=== PATIENT | male | born 1950 | race Caucasian/White ===

== ENCOUNTER 2016-11-21 14:25 | Emergency (ER) | payer OTHER ==
[2016-11-21] MEDS ORDERED: HYDROcodone/APAP 5-325MG 1 EACH TAB PO STA (16:55)
--- NOTE | 2016-11-21 17:02 | ED ---
ENT HPI <Aleksey Wells - Last Filed: 11/21/16 17:10> - General Source: patient, RN notes reviewed Mode of arrival: EMS Limitations: no limitations <Shana Agudelo - Last Filed: 11/21/16 17:12> - General Chief complaint: ENT Stated complaint: tooth ache Time Seen by Provider: 11/21/16 16:14 - History of Present Illness Initial comments: Patient is a 65-year-old male presents to the emergency room for evaluation of left upper dental pain. Patient states he's been having dental pain for many years. Patient states he began having left-sided facial swelling starting this morning. Patient states states the left side of his face was swollen and bright red. Patient states while sitting in the waiting room the swelling has gone down. Patient states he still continuing to have dental pain. Patient states he hasn't been to a dentist in many years. Patient denies fevers or chills. Patient states that he is not allowed to take any antibiotics due to history of blood clot. Patient states his physician told him to never take antibiotics again. Patient denies trouble swallowing. Patient denies ear pain. Patient denies neck pain. (Shana Agudelo) - Related Data Home Medications Medication Instructions Recorded Confirmed metFORMIN HCL 1,000 mg PO BID 11/21/16 11/21/16 Previous Rx's Medication Instructions Recorded HYDROcodone/APAP 5-325MG [[place] 1 tab PO Q6HR PRN #12 tab 11/21/16 5-325] Allergies Allergy/AdvReac Type Severity Reaction Status Date / Time acetaminophen Allergy Unknown Verified 11/21/16 17:10 [From Darvocet-N] propoxyphene Allergy Unknown Verified 11/21/16 17:10 [From Darvocet-N] antibiotics Allergy Swelling Uncoded 11/21/16 14:59 Review of Systems ROS Other: All systems not noted in ROS Statement are negative. <Aleksey Wells - Last Filed: 11/21/16 17:10> ROS Other: All systems not noted in ROS Statement are negative. <Shana Agudelo - Last Filed: 11/21/16 17:12> ROS Statement: Those systems with pertinent positive or pertinent negative responses have been documented in the HPI. Past Medical History Past Medical History: CVA/TIA Additional Past Medical History / Comment(s): "brain surgery from blood clot" History of Any Multi-Drug Resistant Organisms: None Reported Past Surgical History: Orthopedic Surgery Additional Past Surgical History / Comment(s): jaw surgery Past Psychological History: No Psychological Hx Reported Smoking Status: Current every day smoker Past Alcohol Use History: Daily Past Drug Use History: None Reported <Shana Agudelo - Last Filed: 11/21/16 17:12> General Exam Limitations: no limitations General appearance: alert, in no apparent distress Head exam: Present: atraumatic, normocephalic, normal inspection ENT exam: Present: other (Mild left-sided facial edema over left maxillary sinus ) Expanded Ear exam: Present: normal external inspection Teeth exam: Present: dental caries (Patient has very poor dentition), fractured tooth # (multiple), dental tenderness # (18-22) Throat exam: normal inspection Neck exam: Present: normal inspection Respiratory exam: Absent: respiratory distress Back exam: Present: normal inspection Neurological exam: Present: alert, oriented X3 Psychiatric exam: Present: normal affect, normal mood Skin exam: Present: warm, dry, intact, normal color. Absent: rash <Shana Agudelo - Last Filed: 11/21/16 17:12> - General Exam Comments Initial Comments: Sitting in exam room, no acute distress. (Shana Agudelo) Medical Decision Making <Aleksey Wells - Last Filed: 11/21/16 17:10> <Shana Agudelo - Last Filed: 11/21/16 17:12> - Medical Decision Making Medical decision making; I spoke with the patient who insists he cannot take any antibiotics. No antibiotics or be used according to a [facility] who [facility]. The patient has the need for antibiotics for dental abscess in the right maxilla. He reports it's less tender less swollen now than it was earlier this morning. Multiple dental caries and fractured teeth. We told him he can't and won't take antibiotics already can provide his analgesics. He was advised to [facility] the [facility], asked there are advised concerning antibiotic he can take. Also follow-up with the dentist for extraction of teeth. Significant increase risk in serious infections discussed with the patient. He began insists no antibiotics of any type. Dr. Wells ( Aleksey Wells) Disposition <Aleksey Wells - Last Filed: 11/21/16 17:10> Time of Disposition: 17:08 <Shana Agudelo - Last Filed: 11/21/16 17:12> Clinical Impression: Pain, dental, Dental abscess Disposition: HOME SELF-CARE Condition: Good Instructions: Dental Caries (ED), Toothache (ED) Additional Instructions: [facility] as possible to find out what [facility] you can take .Please also follow up with a dentist. If you do not have a dentist, you may contact [facility]. Phone number is [phone] for existing clients. For new clients you may call [phone]. Another option is you have is the [facility] dental school. Phone number is . Medications as directed. [place] gargles. Cold fluids can sometimes help with pain as well. Return to the Emergency Room for any worsening or changing symptoms. Use cold compresses to the outside of the face. Prescriptions: HYDROcodone/APAP 5-325MG [[place] 5-325] 1 tab PO Q6HR PRN #12 tab PRN Reason: Pain Referrals: Yandel Shaikh DO [Primary Care Provider] - 1-2 days
[2016-11-21 18:37] VITALS: BP 142/67; PULSE 76; RESP 20
[2016-11-21 19:29] VITALS: TEMP 98.1
== END 2016-11-21 19:03 | disposition home or self-care (01) ==
LOC: EC 14:25
DX: S02.5XXA Fracture of tooth (traumatic), initial encounter for closed fracture (principal); K02.9 Dental caries, unspecified; K04.7 Periapical abscess without sinus; F17.200 Nicotine dependence, unspecified, uncomplicated; Z79.84 Long term (current) use of oral hypoglycemic drugs; Z88.1 Allergy status to other antibiotic agents; Z88.5 Allergy status to narcotic agent; X58.XXXA Exposure to other specified factors, initial encounter
CPT/HCPCS: 99283

== ENCOUNTER 2018-01-20 03:18 | Emergency (ER) | payer OTHER | END 2018-01-20 04:17 | disposition home or self-care (01) | LOC: EC 03:18 | DX: M79.672 Pain in left foot (principal); R11.0 Nausea; F17.200 Nicotine dependence, unspecified, uncomplicated; Z86.73 Personal history of transient ischemic attack (TIA), and cerebral infarction without residual deficits | CPT/HCPCS: 96372; 99282 ==

== ENCOUNTER 2018-01-25 18:33 | Inpatient (IN) | payer OTHER, MEDICARE ==
[2018-01-25] MEDS ORDERED: SODIUM CHLORIDE 0.9% 2,000 ML IV ONE (18:57)
[2018-01-25] MEDS ORDERED: SODIUM CHLORIDE 0.9% 1,000 ML IV STA (18:57)
[2018-01-25] MEDS ORDERED: SODIUM CHLORIDE 0.9% 500 ML IV STA (18:57)
--- NOTE | 2018-01-25 18:57 | ED ---
Skin/Abscess/FB HPI - General Chief complaint: Skin/Abscess/Foreign Body Stated complaint: Wound Time Seen by Provider: 01/25/18 18:33 Source: patient, EMS, RN notes reviewed Mode of arrival: EMS Limitations: no limitations - History of Present Illness Initial comments: This is a 67-year-old male who is brought in by EMS as a left foot pain and infection. Patient states he was on antibiotics which made him feel sick he quit taking them. He presents now complains of pain he has a fever today no nausea vomiting sweats. He denies any antibiotic ALLERGIES he does he preferred not to take any. Complaints at this time - Related Data Home Medications Medication Instructions Recorded Confirmed metFORMIN HCL 1,000 mg PO BID 11/21/16 11/21/16 Previous Rx's Medication Instructions Recorded HYDROcodone/APAP 5-325MG [[place] 1 tab PO Q6HR PRN #12 tab 11/21/16 5-325] Allergies Allergy/AdvReac Type Severity Reaction Status Date / Time acetaminophen Allergy Unknown Verified 11/21/16 17:10 [From Darvocet-N] propoxyphene Allergy Unknown Verified 11/21/16 17:10 [From Darvocet-N] antibiotics Allergy Swelling Uncoded 11/21/16 14:59 Review of Systems ROS Statement: Those systems with pertinent positive or pertinent negative responses have been documented in the HPI. ROS Other: All systems not noted in ROS Statement are negative. Past Medical History Past Medical History: CVA/TIA Additional Past Medical History / Comment(s): "brain surgery from blood clot" History of Any Multi-Drug Resistant Organisms: None Reported Past Surgical History: Orthopedic Surgery Additional Past Surgical History / Comment(s): jaw surgery Past Psychological History: No Psychological Hx Reported Smoking Status: Current every day smoker Past Alcohol Use History: Daily Past Drug Use History: Marijuana General Exam - General Exam Comments Initial Comments: This a well-developed well-nourished awake alert oriented times 3 male Limitations: no limitations General appearance: alert, in no apparent distress Head exam: Present: atraumatic, normocephalic, normal inspection Eye exam: Present: normal appearance, PERRL, EOMI. Absent: scleral icterus, conjunctival injection, periorbital swelling ENT exam: Present: mucous membranes dry Neck exam: Present: normal inspection. Absent: tenderness, meningismus, lymphadenopathy Respiratory exam: Present: normal lung sounds bilaterally. Absent: respiratory distress, wheezes, rales, rhonchi, stridor Cardiovascular Exam: Present: regular rate, normal rhythm, normal heart sounds. Absent: systolic murmur, diastolic murmur, rubs, gallop, clicks GI/Abdominal exam: Present: soft, normal bowel sounds. Absent: distended, tenderness, guarding, rebound, rigid Extremities exam: Present: full ROM, tenderness, normal capillary refill, other (Examination left foot reveals a ulceration with localized erythema and increased elevated temperature over the lateral aspect of the left foot minimal wanted drainage at this time there is some early evidence of lymphangitis. No lymphadenopathy however proximal to this.). Absent: pedal edema, joint swelling , calf tenderness Back exam: Present: normal inspection Neurological exam: Present: alert, oriented X3, CN II-XII intact Psychiatric exam: Present: normal affect, normal mood Skin exam: Present: warm, dry, intact, normal color. Absent: rash Course Vital Signs 01/25/18 01/25/18 01/25/18 18:43 19:41 20:55 Temperature 101.5 F H 100.8 F H 99.1 F Pulse Rate 114 H 115 H 109 H Respiratory 16 20 18 Rate Blood Pressure 169/97 170/96 164/99 O2 Sat by Pulse 96 96 97 Oximetry 01/25/18 21:22 Temperature 99.0 F Pulse Rate 111 H Respiratory 18 Rate Blood Pressure 160/99 O2 Sat by Pulse 97 Oximetry Medical Decision Making - Medical Decision Making I did discuss findings with the patient he will be admitted for inpatient treatment with IV antibiotics consultation by instructions disease and outpatient treatment failure the [facility]. The patient did respond to IV fluids Diuretics. - Lab Data Result diagrams: 01/25/18 18:55 01/25/18 18:55 Lab Results 01/25/18 01/25/18 01/25/18 Range/Units 18:55 18:55 18:55 WBC 15.8 H (3.8-10.6) k/uL RBC 5.32 (4.30-5.90) m/uL Hgb 16.7 (13.0-17.5) gm/dL Hct 49.2 (39.0-53.0) % MCV 92.3 (80.0-100.0) fL MCH 31.3 (25.0-35.0) pg MCHC 33.9 (31.0-37.0) g/dL RDW 12.5 (11.5-15.5) % Plt Count 202 (150-450) k/uL Neutrophils % 87 % Lymphocytes % 7 % Monocytes % 4 % Eosinophils % 1 % Basophils % 0 % Neutrophils # 13.7 H (1.3-7.7) k/uL Lymphocytes # 1.1 (1.0-4.8) k/uL Monocytes # 0.7 (0-1.0) k/uL Eosinophils # 0.2 (0-0.7) k/uL Basophils # 0.0 (0-0.2) k/uL Sodium 130 L (137-145) mmol/L Potassium 4.3 (3.5-5.1) mmol/L Chloride 98 (98-107) mmol/L Carbon Dioxide 21 L (22-30) mmol/L Anion Gap 11 mmol/L BUN 8 L (9-20) mg/dL Creatinine 0.73 (0.66-1.25) mg/dL Est GFR (CKD-EPI)AfAm >90 (>60 ml/min/1.73 sqM) Est GFR (CKD-EPI)NonAf >90 (>60 ml/min/1.73 sqM) Glucose 156 H (74-99) mg/dL Calcium 9.2 (8.4-10.2) mg/dL Magnesium 2.0 (1.6-2.3) mg/dL Total Bilirubin 1.1 (0.2-1.3) mg/dL AST 69 H (17-59) U/L ALT 83 H (21-72) U/L Alkaline Phosphatase 133 H (38-126) U/L Total Creatine Kinase 68 (55-170) U/L CK-MB (CK-2) 0.3 (0.0-2.4) ng/mL CK-MB (CK-2) Rel Index 0.4 C-Reactive Protein 23.9 H (<10.0) mg/L Total Protein 8.3 H (6.3-8.2) g/dL Albumin 4.4 (3.5-5.0) g/dL Urine Color Urine Appearance (Clear) Urine pH (5.0-8.0) Ur Specific [place] (1.001-1.035) Urine Protein (Negative) Urine Glucose (UA) (Negative) Urine Ketones (Negative) Urine Blood (Negative) Urine Nitrite (Negative) Urine Bilirubin (Negative) Urine Urobilinogen (<2.0) mg/dL Ur Leukocyte Esterase (Negative) Urine RBC (0-5) /hpf Urine WBC (0-5) /hpf Urine Mucus (None) /hpf 01/25/18 Range/Units 19:40 WBC (3.8-10.6) k/uL RBC (4.30-5.90) m/uL Hgb (13.0-17.5) gm/dL Hct (39.0-53.0) % MCV (80.0-100.0) fL MCH (25.0-35.0) pg MCHC (31.0-37.0) g/dL RDW (11.5-15.5) % Plt Count (150-450) k/uL Neutrophils % % Lymphocytes % % Monocytes % % Eosinophils % % Basophils % % Neutrophils # (1.3-7.7) k/uL Lymphocytes # (1.0-4.8) k/uL Monocytes # (0-1.0) k/uL Eosinophils # (0-0.7) k/uL Basophils # (0-0.2) k/uL Sodium (137-145) mmol/L Potassium (3.5-5.1) mmol/L Chloride (98-107) mmol/L Carbon Dioxide (22-30) mmol/L Anion Gap mmol/L BUN (9-20) mg/dL Creatinine (0.66-1.25) mg/dL Est GFR (CKD-EPI)AfAm (>60 ml/min/1.73 sqM) Est GFR (CKD-EPI)NonAf (>60 ml/min/1.73 sqM) Glucose (74-99) mg/dL Calcium (8.4-10.2) mg/dL Magnesium (1.6-2.3) mg/dL Total Bilirubin (0.2-1.3) mg/dL AST (17-59) U/L ALT (21-72) U/L Alkaline Phosphatase (38-126) U/L Total Creatine Kinase (55-170) U/L CK-MB (CK-2) (0.0-2.4) ng/mL CK-MB (CK-2) Rel Index C-Reactive Protein (<10.0) mg/L Total Protein (6.3-8.2) g/dL Albumin (3.5-5.0) g/dL Urine Color Yellow Urine Appearance Clear (Clear) Urine pH 6.5 (5.0-8.0) Ur Specific [place] 1.011 (1.001-1.035) Urine Protein 1+ H (Negative) Urine Glucose (UA) Negative (Negative) Urine Ketones 2+ H (Negative) Urine Blood Negative (Negative) Urine Nitrite Negative (Negative) Urine Bilirubin Negative (Negative) Urine Urobilinogen 2.0 (<2.0) mg/dL Ur Leukocyte Esterase Moderate H (Negative) Urine RBC 2 (0-5) /hpf Urine WBC 10 H (0-5) /hpf Urine Mucus Rare H (None) /hpf - Radiology Data Radiology results: report reviewed, image reviewed (I did review the imaging and report no acute findings. 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
[2018-01-25] MEDS ORDERED: PIPERACILLIN-TAZOBACTAM 3.375 GM in DEXTROSE/WATER 1 50ML.BAG IVPB STA (18:58)
[2018-01-25 19:20] LABS: Basophils % (A) 0 %; Eosinophils # (A) 0.2 k/uL (0-0.7); Eosinophils % (A) 1 %; HCT 49.2 % (39.0-53.0); HGB 16.7 gm/dL (13.0-17.5); Lymphocytes # (A) 1.1 k/uL (1.0-4.8); Lymphocytes % (A) 7 %; MCH 31.3 pg (25.0-35.0); MCHC 33.9 g/dL (31.0-37.0); MCV 92.3 fL (80.0-100.0); Monocytes # (A) 0.7 k/uL (0-1.0); Monocytes % (A) 4 %; Neutrophils # (A) 13.7 k/uL (1.3-7.7); Neutrophils % (A) 87 %; Platelet Count 202 k/uL (150-450); RBC 5.32 m/uL (4.30-5.90); RDW 12.5 % (11.5-15.5); WBC 15.8 k/uL (3.8-10.6)
[2018-01-25 19:30] LABS: ALT 83 U/L (21-72); AST 69 U/L (17-59); Albumin 4.4 g/dL (3.5-5.0); Alkaline Phosphatase 133 U/L (38-126); Anion Gap 11 mmol/L; Blood Urea Nitrogen 8 mg/dL (9-20); Calcium 9.2 mg/dL (8.4-10.2); Carbon Dioxide 21 mmol/L (22-30); Chloride 98 mmol/L (98-107); Glucose 156 mg/dL (74-99); Potassium 4.3 mmol/L (3.5-5.1); Sodium 130 mmol/L (137-145); Total Bilirubin 1.1 mg/dL (0.2-1.3); Total Protein 8.3 g/dL (6.3-8.2)
[2018-01-25] MEDS ORDERED: ACETAMINOPHEN TAB 500 MG TAB PO STA (19:44)
[2018-01-25 19:47] LABS: Creatine Kinase MB 0.3 ng/mL (0.0-2.4)
[2018-01-25 19:56] LABS: C Reactive Protein 23.9 mg/L (<10.0)
[2018-01-25 19:56] LABS: Appearance,Urine Clear (Clear); Bilirubin,Urine Negative (Negative); Blood,Urine Negative (Negative); Color,Urine Yellow; Glucose,Urine (UA) Negative (Negative); Ketones,Urine 2+ (Negative); Leukocyte Esterase,Urine Moderate (Negative); Mucus,Urine Rare /hpf; Nitrite,Urine Negative (Negative); PH, Urine 6.5 (5.0-8.0); Protein,Urine 1+ (Negative); RBC,Urine 2 /hpf (0-5); Specific Gravity,Urine 1.011 (1.001-1.035); WBC,Urine 10 /hpf (0-5)
[2018-01-25] MEDS ORDERED: fentaNYL (PF) 50 MCG/ML 2 ML AMP IV STA (20:31)
--- NOTE | 2018-01-25 20:46 | XR ---
EXAMINATION TYPE: XR chest 2V DATE OF EXAM: 01/25/2018 COMPARISON: NONE HISTORY: Cough TECHNIQUE: Frontal and lateral views of the chest are obtained. Findings There is no heart failure nor confluent pneumonic infiltrate. Costophrenic angles are clear. There ar e chest leads. Bony thorax is intact. IMPRESSION: No active cardiopulmonary disease. Normal heart.
--- NOTE | 2018-01-25 20:47 | XR ---
EXAMINATION TYPE: XR foot complete LT DATE OF EXAM: 01/25/2018 COMPARISON: NONE HISTORY: Foot pain TECHNIQUE: 3 views FINDINGS: There is narrowing and spurring at the first MP joint. I see no fracture nor dislocation. M etatarsals are intact. There are no erosions. 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 No fracture. No evidence of osteomyelitis.
[2018-01-25] MEDS ORDERED: NALOXONE 0.4 MG/ML 1 ML VIAL IV PRN (21:30)
[2018-01-25] MEDS ORDERED: IBUPROFEN 400 MG TAB PO PRN (21:30)
[2018-01-25] MEDS ORDERED: VANCOMYCIN IV PER PHARMACY 1 EACH MISC MISCELLANE PRN (21:36)
--- NOTE | 2018-01-25 21:36 | ED ---
Medical Decision Making - Lab Data Result diagrams: 01/25/18 18:55 01/25/18 18:55 Lab Results 01/25/18 01/25/18 01/25/18 Range/Units 18:55 18:55 18:55 WBC 15.8 H (3.8-10.6) k/uL RBC 5.32 (4.30-5.90) m/uL Hgb 16.7 (13.0-17.5) gm/dL Hct 49.2 (39.0-53.0) % MCV 92.3 (80.0-100.0) fL MCH 31.3 (25.0-35.0) pg MCHC 33.9 (31.0-37.0) g/dL RDW 12.5 (11.5-15.5) % Plt Count 202 (150-450) k/uL Neutrophils % 87 % Lymphocytes % 7 % Monocytes % 4 % Eosinophils % 1 % Basophils % 0 % Neutrophils # 13.7 H (1.3-7.7) k/uL Lymphocytes # 1.1 (1.0-4.8) k/uL Monocytes # 0.7 (0-1.0) k/uL Eosinophils # 0.2 (0-0.7) k/uL Basophils # 0.0 (0-0.2) k/uL Sodium 130 L (137-145) mmol/L Potassium 4.3 (3.5-5.1) mmol/L Chloride 98 (98-107) mmol/L Carbon Dioxide 21 L (22-30) mmol/L Anion Gap 11 mmol/L BUN 8 L (9-20) mg/dL Creatinine 0.73 (0.66-1.25) mg/dL Est GFR (CKD-EPI)AfAm >90 (>60 ml/min/1.73 sqM) Est GFR (CKD-EPI)NonAf >90 (>60 ml/min/1.73 sqM) Glucose 156 H (74-99) mg/dL Calcium 9.2 (8.4-10.2) mg/dL Magnesium 2.0 (1.6-2.3) mg/dL Total Bilirubin 1.1 (0.2-1.3) mg/dL AST 69 H (17-59) U/L ALT 83 H (21-72) U/L Alkaline Phosphatase 133 H (38-126) U/L Total Creatine Kinase 68 (55-170) U/L CK-MB (CK-2) 0.3 (0.0-2.4) ng/mL CK-MB (CK-2) Rel Index 0.4 C-Reactive Protein 23.9 H (<10.0) mg/L Total Protein 8.3 H (6.3-8.2) g/dL Albumin 4.4 (3.5-5.0) g/dL Urine Color Urine Appearance (Clear) Urine pH (5.0-8.0) Ur Specific [place] (1.001-1.035) Urine Protein (Negative) Urine Glucose (UA) (Negative) Urine Ketones (Negative) Urine Blood (Negative) Urine Nitrite (Negative) Urine Bilirubin (Negative) Urine Urobilinogen (<2.0) mg/dL Ur Leukocyte Esterase (Negative) Urine RBC (0-5) /hpf Urine WBC (0-5) /hpf Urine Mucus (None) /hpf 01/25/18 Range/Units 19:40 WBC (3.8-10.6) k/uL RBC (4.30-5.90) m/uL Hgb (13.0-17.5) gm/dL Hct (39.0-53.0) % MCV (80.0-100.0) fL MCH (25.0-35.0) pg MCHC (31.0-37.0) g/dL RDW (11.5-15.5) % Plt Count (150-450) k/uL Neutrophils % % Lymphocytes % % Monocytes % % Eosinophils % % Basophils % % Neutrophils # (1.3-7.7) k/uL Lymphocytes # (1.0-4.8) k/uL Monocytes # (0-1.0) k/uL Eosinophils # (0-0.7) k/uL Basophils # (0-0.2) k/uL Sodium (137-145) mmol/L Potassium (3.5-5.1) mmol/L Chloride (98-107) mmol/L Carbon Dioxide (22-30) mmol/L Anion Gap mmol/L BUN (9-20) mg/dL Creatinine (0.66-1.25) mg/dL Est GFR (CKD-EPI)AfAm (>60 ml/min/1.73 sqM) Est GFR (CKD-EPI)NonAf (>60 ml/min/1.73 sqM) Glucose (74-99) mg/dL Calcium (8.4-10.2) mg/dL Magnesium (1.6-2.3) mg/dL Total Bilirubin (0.2-1.3) mg/dL AST (17-59) U/L ALT (21-72) U/L Alkaline Phosphatase (38-126) U/L Total Creatine Kinase (55-170) U/L CK-MB (CK-2) (0.0-2.4) ng/mL CK-MB (CK-2) Rel Index C-Reactive Protein (<10.0) mg/L Total Protein (6.3-8.2) g/dL Albumin (3.5-5.0) g/dL Urine Color Yellow Urine Appearance Clear (Clear) Urine pH 6.5 (5.0-8.0) Ur Specific [place] 1.011 (1.001-1.035) Urine Protein 1+ H (Negative) Urine Glucose (UA) Negative (Negative) Urine Ketones 2+ H (Negative) Urine Blood Negative (Negative) Urine Nitrite Negative (Negative) Urine Bilirubin Negative (Negative) Urine Urobilinogen 2.0 (<2.0) mg/dL Ur Leukocyte Esterase Moderate H (Negative) Urine RBC 2 (0-5) /hpf Urine WBC 10 H (0-5) /hpf Urine Mucus Rare H (None) /hpf Disposition Clinical Impression: Failure of outpatient treatment, Febrile illness, acute, Diabetic infection of left foot Disposition: ADMITTED IP TO THIS [facility] Condition: Stable Referrals: None,Stated [Primary Care Provider] - 1-2 days
[2018-01-25] MEDS ORDERED: VANCOMYCIN 1,500 MG in SODIUM CHLORIDE 0.9% 250 ML IVPB STA (21:42)
[2018-01-25] MEDS: HYDROcodone/APAP 5-325MG 1 EACH TAB PO PRN (22:20)
[2018-01-25 23:57] VITALS: BMI 28.0
[2018-01-26 00:03] LABS: Glucose,Whole Blood 153 mg/dL (75-99)
[2018-01-26] MEDS: HEPARIN SODIUM,PORCINE 5,000 UNIT/ML 1 ML VIAL SQ SCH ×4 (00:09→23:01)
[2018-01-26 02:05] LABS: Glucose,Whole Blood 164 mg/dL (75-99)
[2018-01-26] MEDS ORDERED: HYDROmorphone 1 MG/ML 1 ML SYRINGE IVP PRN (02:37)
[2018-01-26] MEDS ORDERED: LORazepam 2 MG/ML INJ IV PRN ×2 (02:38)
[2018-01-26] MEDS: LORazepam 2 MG/ML INJ IV PRN ×2 (03:21→14:51)
[2018-01-26 07:11] LABS: Glucose,Whole Blood 145 mg/dL (75-99)
[2018-01-26] MEDS ORDERED: metFORMIN 500 MG TAB PO SCH (07:30)
[2018-01-26] MEDS: INSULIN ASPART 100 UNIT/ML 1 ML 10 ML VIAL SQ SCH ×4 (07:50→22:54)
[2018-01-26] MEDS: PANTOPRAZOLE 40 MG/10 ML VIAL IV SCH (07:50)
[2018-01-26] MEDS: VANCOMYCIN 1,500 MG in SODIUM CHLORIDE 0.9% 250 ML IVPB SCH ×3 (07:54→23:00)
[2018-01-26] MEDS: PIPERACILLIN-TAZOBACTAM 3.375 GM in DEXTROSE/WATER 1 50ML.BAG IVPB SCH ×3 (07:54→23:00)
[2018-01-26] MEDS ORDERED: DIPH,PERTUS(ACELL)TETVAC-LF 0.5 ML VIAL IM ONE (08:26)
[2018-01-26] MEDS ORDERED: MAGNESIUM HYDROXIDE 2,400 MG/10 ML CUP PO PRN (08:29)
[2018-01-26] MEDS: KETOROLAC 30 MG/ML 1 ML VIAL IVP SCH ×4 (08:58→23:01)
--- NOTE | 2018-01-26 11:08 | P.HPIM ---
History of Present Illness 62-year-old male came in with complaints of left foot pain and redness. Patient was comparing of severe burning pain in the left foot. Patient does have cellulitis patient was started on vancomycin and Annmarie infectious disease was consulted patient does have an ulcer on the medial aspect of the left foot does have good pulses. Imaging showed mild osteoarthritis. Patient was comparing of cough without any significant sputum production patient does drink alcohol denies drinking daily basis although patient is on Ativan CIWA protocol. Patient had fever chills at home. Patient is admitted for sepsis most probable source being infected foot and x-ray did show osteoarthritis of the first MP joint. Bone scan was ordered. Patient does not appear to have any pneumonic process or UTI Review of Systems REVIEW OF SYSTEMS: CONSTITUTIONAL: No fever, no malaise, no fatigue. HEENT: No recent visual problems or hearing problems. Denied any sore throat. CARDIOVASCULAR: No chest pain, orthopnea, PND, no palpitations, no syncope. PULMONARY: No shortness of breath, no cough, no hemoptysis. GASTROINTESTINAL: No diarrhea, no nausea, no vomiting, no abdominal pain. Normoactive bowel sounds. NEUROLOGICAL: No headaches, no weakness, no numbness. HEMATOLOGICAL: Denies any bleeding or petechiae. GENITOURINARY: Denies any burning micturition, frequency, or urgency. MUSCULOSKELETAL/RHEUMATOLOGICAL: As mentioned above ENDOCRINE: Denies any polyuria or polydipsia. The rest of the 14-point review of systems is negative. Past Medical History Past Medical History: CVA/TIA Additional Past Medical History / Comment(s): "brain surgery from blood clot". pt states he lost 50 lbs and his diabetes went away History of Any Multi-Drug Resistant Organisms: None Reported Past Surgical History: Orthopedic Surgery Additional Past Surgical History / Comment(s): jaw surgery Past Anesthesia/Blood Transfusion Reactions: No Reported Reaction Past Psychological History: No Psychological Hx Reported Smoking Status: Current every day smoker Past Alcohol Use History: Daily Past Drug Use History: Marijuana Medications and Allergies Home Medications Medication Instructions Recorded Confirmed Type No Known Home Medications 01/25/18 01/25/18 History Allergies Allergy/AdvReac Type Severity Reaction Status Date / Time acetaminophen Allergy Unknown Verified 01/25/18 21:50 [From Darvocet-N] propoxyphene Allergy Unknown Verified 01/25/18 21:50 [From Darvocet-N] antibiotics Allergy Swelling Uncoded 11/21/16 14:59 Physical Exam Vitals: Vital Signs Temp Pulse Pulse Resp BP BP Pulse Ox 01/26/18 06:16 98.3 F 114 H 16 137/89 96 01/26/18 05:43 115 H 01/26/18 02:30 98.9 F 125 H 20 149/84 94 L 01/25/18 23:03 98 F 108 H 17 154/89 94 L 01/25/18 22:21 110 H 20 187/97 95 01/25/18 21:22 99.0 F 111 H 18 160/99 97 01/25/18 20:55 99.1 F 109 H 18 164/99 97 01/25/18 19:41 100.8 F H 115 H 20 170/96 96 01/25/18 18:43 101.5 F H 114 H 16 169/97 96 Intake and Output 01/25/18 01/26/18 01/26/18 22:59 06:59 14:59 Intake Total 700 Output Total 450 950 Balance -450 -250 Intake: Intake, IV Titration 700 Amount Sodium Chloride 0.9% 1, 450 000 ml @ 75 mls/hr IV . [id number] [facility] Rx#:[id number] Vancomycin 1,500 mg In 250 Sodium Chloride 0.9% 250 ml @ 125 mls/hr IVPB Q8H [facility] Rx#:[id number] Output: Urine 450 950 Other: Voiding Method Urinal Urinal Diaper Diaper Weight 86.183 kg 86.183 kg PHYSICAL EXAMINATION: GENERAL: The patient is alert and oriented x3, not in any acute distress. Well developed, well nourished. HEENT: Pupils are round and equally reacting to light. EOMI. No scleral icterus. No conjunctival pallor. Normocephalic, atraumatic. No pharyngeal erythema. No thyromegaly. CARDIOVASCULAR: S1 and S2 present. No murmurs, rubs, or gallops. PULMONARY: Chest is clear to auscultation, no wheezing or crackles. ABDOMEN: Soft, nontender, nondistended, normoactive bowel sounds. No palpable organomegaly. MUSCULOSKELETAL: No joint swelling or deformity. EXTREMITIES: No cyanosis, clubbing, or pedal edema. Left foot redness with an ulcer as mentioned above please refer to the photographs of ulcer NEUROLOGICAL: Gross neurological examination did not reveal any focal deficits. SKIN: No rashes. Results CBC & Chem 7: 01/25/18 18:55 01/25/18 18:55 Labs: Abnormal Lab Results - Last 24 Hours (Table) 01/25/18 01/25/18 01/25/18 Range/Units 18:55 18:55 19:40 WBC 15.8 H (3.8-10.6) k/uL Neutrophils # 13.7 H (1.3-7.7) k/uL Sodium 130 L (137-145) mmol/L Carbon Dioxide 21 L (22-30) mmol/L BUN 8 L (9-20) mg/dL Glucose 156 H (74-99) mg/dL POC Glucose (mg/dL) (75-99) mg/dL AST 69 H (17-59) U/L ALT 83 H (21-72) U/L Alkaline Phosphatase 133 H (38-126) U/L C-Reactive Protein 23.9 H (<10.0) mg/L Total Protein 8.3 H (6.3-8.2) g/dL Urine Protein 1+ H (Negative) Urine Ketones 2+ H (Negative) Ur Leukocyte Esterase Moderate H (Negative) Urine WBC 10 H (0-5) /hpf Urine Mucus Rare H (None) /hpf 01/26/18 01/26/18 01/26/18 Range/Units 00:01 01:52 07:09 WBC (3.8-10.6) k/uL Neutrophils # (1.3-7.7) k/uL Sodium (137-145) mmol/L Carbon Dioxide (22-30) mmol/L BUN (9-20) mg/dL Glucose (74-99) mg/dL POC Glucose (mg/dL) 153 H 164 H 145 H (75-99) mg/dL AST (17-59) U/L ALT (21-72) U/L Alkaline Phosphatase (38-126) U/L C-Reactive Protein (<10.0) mg/L Total Protein (6.3-8.2) g/dL Urine Protein (Negative) Urine Ketones (Negative) Ur Leukocyte Esterase (Negative) Urine WBC (0-5) /hpf Urine Mucus (None) /hpf Assessment and Plan Plan: -Sepsis probably secondary to acute ostium myelitis or left foot infection with cellulitis patient is on vancomycin and Zosyn. Infectious disease was consulted bone scan is being obtained patient will be started on IV fluids -Hyponatremia hypovolemic hyponatremia patient was started on IV fluids recheck basic metabolic profile tomorrow -Alcohol withdrawal: Patient will be monitored for that although he denies drinking alcohol daily basis -Nicotine abuse: Counseling was provided -Type 2 diabetes mellitus metformin were discontinued patient was started on sliding scale insulin for now -
[2018-01-26 11:25] LABS: Glucose,Whole Blood 147 mg/dL (75-99)
[2018-01-26] MEDS ORDERED: INSULIN ASPART 100 UNIT/ML 1 ML 10 ML VIAL SQ SCH (12:30)
--- NOTE | 2018-01-26 12:42 | P.CONS ---
History of Present Illness - Reason for Consult Consult date: 01/26/18 Infection left foot - History of Present Illness This is a 67-year-old male patient presented to the hospital complaining of pain in his left foot with fever. Patient states that he has had a wound to his left foot for maybe 6 May be 8 or maybe 4 months. He has been on 3 courses of antibiotics and [facility] [place] He knows he has been on Keflex but otherwise does not recall the name of his antibiotics. Last tetanus status is unknown. Patient presented with fever of 101.5, leukocytosis of 15.8 and elevated heart rate with hypertension. Sodium was 1:30, creatinine 0.73, AST 69, ALT 83 and alkaline phosphatase 133. Urinalysis was clear with nitrate negative leukoesterase moderate, WBCs 10. Patient denies any urinary symptoms. He does have history apparently of diabetes but states he lost 50 pounds and was no longer diabetic was taken off his medicine. Blood sugar has been running between 145 and 156. 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 No fracture. No osteomyelitis. Chest x-ray shows no active cardiopulmonary disease. Normal heart. [facility] and started on vancomycin and Zosyn. He is status post 2500 mL IV fluid bolus. Review of Systems All systems: negative Constitutional: Reports chills, Reports fatigue, Reports fever, Denies poor appetite Eyes: denies blurred vision, denies pain Ears, nose, mouth and throat: Denies dental pain, Denies headache, Denies sore throat Cardiovascular: Denies chest pain, Denies shortness of breath Respiratory: Reports cough, Denies cough with sputum, Denies dyspnea, Denies excessive sputum, Denies hemoptysis, Denies home oxygen, Denies wheezing Gastrointestinal: Denies abdominal pain, Denies diarrhea, Denies loss of appetite, Denies nausea, Denies vomiting Genitourinary: Denies dysuria Musculoskeletal: Denies myalgias Integumentary: Reports wounds, Denies pruritus, Denies rash Neurological: Denies numbness, Denies weakness Psychiatric: Denies anxiety, Denies depression Endocrine: Denies fatigue, Denies weight change Past Medical History Past Medical History: CVA/TIA Additional Past Medical History / Comment(s): "brain surgery from blood clot". pt states he lost 50 lbs and his diabetes went away History of Any Multi-Drug Resistant Organisms: None Reported Past Surgical History: Orthopedic Surgery Additional Past Surgical History / Comment(s): jaw surgery Past Anesthesia/Blood Transfusion Reactions: No Reported Reaction Past Psychological History: No Psychological Hx Reported Smoking Status: Current every day smoker Past Alcohol Use History: Daily Additional Past Alcohol Use History / Comment(s): Patient is a smoker of less than one pack per day since he was 14 years of age. He does smoke marijuana. He states he has cut back to 3 times a day and was smoking all day every day. He denies any other street drug use. He does drink vodka 2 drinks at least 2 times per week. He lives alone. There are no pets in the home. He was in the [employer] and stationed in [place]. Past Drug Use History: Marijuana Medications and Allergies Home Medications Medication Instructions Recorded Confirmed Type No Known Home Medications 01/25/18 01/25/18 History Allergies Allergy/AdvReac Type Severity Reaction Status Date / Time acetaminophen Allergy Unknown Verified 01/25/18 21:50 [From Darvocet-N] propoxyphene Allergy Unknown Verified 01/25/18 21:50 [From Darvocet-N] antibiotics Allergy Swelling Uncoded 11/21/16 14:59 Physical Exam Vitals: Vital Signs Temp Pulse Pulse Resp BP BP Pulse Ox 01/26/18 06:16 98.3 F 114 H 16 137/89 96 01/26/18 05:43 115 H 01/26/18 02:30 98.9 F 125 H 20 149/84 94 L 01/25/18 23:03 98 F 108 H 17 154/89 94 L 01/25/18 22:21 110 H 20 187/97 95 01/25/18 21:22 99.0 F 111 H 18 160/99 97 01/25/18 20:55 99.1 F 109 H 18 164/99 97 01/25/18 19:41 100.8 F H 115 H 20 170/96 96 01/25/18 18:43 101.5 F H 114 H 16 169/97 96 Intake and Output 01/25/18 01/26/18 01/26/18 22:59 06:59 14:59 Intake Total 700 Output Total 450 950 Balance -450 -250 Intake: Intake, IV Titration 700 Amount Sodium Chloride 0.9% 1, 450 000 ml @ 75 mls/hr IV . [id number] [facility] Rx#:[id number] Vancomycin 1,500 mg In 250 Sodium Chloride 0.9% 250 ml @ 125 mls/hr IVPB Q8H [facility] Rx#:[id number] Output: Urine 450 950 Other: Voiding Method Urinal Urinal Diaper Diaper Weight 86.183 kg 86.183 kg Gen: This is a 67-year-old male patient. He is sitting up in bed eating breakfast and appears to be comfortable and in no acute distress. HEENT: Head is atraumatic, normocephalic. Pupils equal, round. Sclerae is anicteric. Oral mucous membranes are moist. Dentition is in poor order. NECK: Supple. No JVD. No lymphadenopathy. No thyromegaly. LUNGS: Clear to auscultation. No wheezes or rhonchi. No intercostal retractions. HEART: Regular rate and rhythm. No murmur. ABDOMEN: Soft. Bowel sounds are present. No masses. No tenderness. EXTREMITIES: No pedal edema. No calf tenderness. Chronic dark color changes to the left foot. Dorsalis pedis is weak bilaterally. Patient has a wound to the lateral left heel with no active drainage. NEUROLOGICAL: Patient is awake, alert and oriented x3. Cranial nerves 2 through 12 are grossly intact. Results Results: Laboratory Results WBC 15.8 k/uL (3.8-10.6) H 01/25/18 18:55 RBC 5.32 m/uL (4.30-5.90) 01/25/18 18:55 Hgb 16.7 gm/dL (13.0-17.5) 01/25/18 18:55 Hct 49.2 % (39.0-53.0) 01/25/18 18:55 MCV 92.3 fL (80.0-100.0) 01/25/18 18:55 MCH 31.3 pg (25.0-35.0) 01/25/18 18:55 MCHC 33.9 g/dL (31.0-37.0) 01/25/18 18:55 RDW 12.5 % (11.5-15.5) 01/25/18 18:55 Plt Count 202 k/uL (150-450) 01/25/18 18:55 Neutrophils % 87 % 01/25/18 18:55 Lymphocytes % 7 % 01/25/18 18:55 Monocytes % 4 % 01/25/18 18:55 Eosinophils % 1 % 01/25/18 18:55 Basophils % 0 % 01/25/18 18:55 Neutrophils # 13.7 k/uL (1.3-7.7) H 01/25/18 18:55 Lymphocytes # 1.1 k/uL (1.0-4.8) 01/25/18 18:55 Monocytes # 0.7 k/uL (0-1.0) 01/25/18 18:55 Eosinophils # 0.2 k/uL (0-0.7) 01/25/18 18:55 Basophils # 0.0 k/uL (0-0.2) 01/25/18 18:55 Sodium 130 mmol/L (137-145) L 01/25/18 18:55 Potassium 4.3 mmol/L (3.5-5.1) 01/25/18 18:55 Chloride 98 mmol/L (98-107) 01/25/18 18:55 Carbon Dioxide 21 mmol/L (22-30) L 01/25/18 18:55 Anion Gap 11 mmol/L 01/25/18 18:55 BUN 8 mg/dL (9-20) L 01/25/18 18:55 Creatinine 0.73 mg/dL (0.66-1.25) 01/25/18 18:55 Est GFR (CKD-EPI)AfAm >90 (>60 ml/min/1.73 sqM) 01/25/18 18:55 Est GFR (CKD-EPI)NonAf >90 (>60 ml/min/1.73 sqM) 01/25/18 18:55 Glucose 156 mg/dL (74-99) H 01/25/18 18:55 POC Glucose (mg/dL) 147 mg/dL (75-99) H 01/26/18 11:23 POC Glu [employer] EMANUEL Lena Parham 01/26/18 11:23 Plasma Lactic Acid Panda 1.4 mmol/L (0.7-2.0) 01/25/18 18:55 Calcium 9.2 mg/dL (8.4-10.2) 01/25/18 18:55 Magnesium 2.0 mg/dL (1.6-2.3) 01/25/18 18:55 Total Bilirubin 1.1 mg/dL (0.2-1.3) 01/25/18 18:55 AST 69 U/L (17-59) H 01/25/18 18:55 ALT 83 U/L (21-72) H 01/25/18 18:55 Alkaline Phosphatase 133 U/L (38-126) H 01/25/18 18:55 Total Creatine Kinase 68 U/L (55-170) 01/25/18 18:55 CK-MB (CK-2) 0.3 ng/mL (0.0-2.4) 01/25/18 18:55 CK-MB (CK-2) Rel Index 0.4 01/25/18 18:55 C-Reactive Protein 23.9 mg/L (<10.0) H 01/25/18 18:55 Total Protein 8.3 g/dL (6.3-8.2) H 01/25/18 18:55 Albumin 4.4 g/dL (3.5-5.0) 01/25/18 18:55 Urine Color Yellow 01/25/18 19:40 Urine Appearance Clear (Clear) 01/25/18 19:40 Urine pH 6.5 (5.0-8.0) 01/25/18 19:40 Ur Specific [place] 1.011 (1.001-1.035) 01/25/18 19:40 Urine Protein 1+ (Negative) H 01/25/18 19:40 Urine Glucose (UA) Negative (Negative) 01/25/18 19:40 Urine Ketones 2+ (Negative) H 01/25/18 19:40 Urine Blood Negative (Negative) 01/25/18 19:40 Urine Nitrite Negative (Negative) 01/25/18 19:40 Urine Bilirubin Negative (Negative) 01/25/18 19:40 Urine Urobilinogen 2.0 mg/dL (<2.0) 01/25/18 19:40 Ur Leukocyte Esterase Moderate (Negative) H 01/25/18 19:40 Urine RBC 2 /hpf (0-5) 01/25/18 19:40 Urine WBC 10 /hpf (0-5) H 07/23/18 19:40 Urine Mucus Rare /hpf (None) H 01/25/18 19:40 CBC & Chem 7: 01/25/18 18:55 01/25/18 18:55 Labs: Abnormal Lab Results - Last 24 Hours (Table) 01/25/18 01/25/18 01/25/18 Range/Units 18:55 18:55 19:40 WBC 15.8 H (3.8-10.6) k/uL Neutrophils # 13.7 H (1.3-7.7) k/uL Sodium 130 L (137-145) mmol/L Carbon Dioxide 21 L (22-30) mmol/L BUN 8 L (9-20) mg/dL Glucose 156 H (74-99) mg/dL POC Glucose (mg/dL) (75-99) mg/dL AST 69 H (17-59) U/L ALT 83 H (21-72) U/L Alkaline Phosphatase 133 H (38-126) U/L C-Reactive Protein 23.9 H (<10.0) mg/L Total Protein 8.3 H (6.3-8.2) g/dL Urine Protein 1+ H (Negative) Urine Ketones 2+ H (Negative) Ur Leukocyte Esterase Moderate H (Negative) Urine WBC 10 H (0-5) /hpf Urine Mucus Rare H (None) /hpf 01/26/18 01/26/18 01/26/18 Range/Units 00:01 01:52 07:09 WBC (3.8-10.6) k/uL Neutrophils # (1.3-7.7) k/uL Sodium (137-145) mmol/L Carbon Dioxide (22-30) mmol/L BUN (9-20) mg/dL Glucose (74-99) mg/dL POC Glucose (mg/dL) 153 H 164 H 145 H (75-99) mg/dL AST (17-59) U/L ALT (21-72) U/L Alkaline Phosphatase (38-126) U/L C-Reactive Protein (<10.0) mg/L Total Protein (6.3-8.2) g/dL Urine Protein (Negative) Urine Ketones (Negative) Ur Leukocyte Esterase (Negative) Urine WBC (0-5) /hpf Urine Mucus (None) /hpf Assessment and Plan Plan: This is a 67-year-old male patient who presented to the hospital with signs of sepsis secondary to nonhealing wound to the left foot. He has been placed on Zosyn and vancomycin which will be continued for now. Wound culture will be attempted. Blood culture is status received. Bone scan has been ordered for osteomyelitis. Tetanus status will be updated. Toradol has been added and for pain control scheduled for the next 2 days. Continue supportive care. Further recommendations as patient progresses. The above dictated assessment and findings were discussed with Dr. Calles. The impression and plan of care have been directed as dictated. Danuta Menjivar nurse practitioner acting as scribe for Dr. Calles.
[2018-01-26] MEDS: THIAMINE 100 MG TAB PO SCH ×2 (13:52→17:51)
[2018-01-26] MEDS: MULTIVITAMINS, THERA 1 EACH TAB PO SCH (13:52)
--- NOTE | 2018-01-26 14:43 | US ---
EXAMINATION TYPE: US venous doppler duplex LE LT DATE OF EXAM: 01/26/2018 1:27 PM COMPARISON: NONE CLINICAL HISTORY: evaluate for DVT. SIDE PERFORMED: Left TECHNIQUE: The lower extremity deep venous system is examined utilizing real time linear array sonog matthew with graded compression, doppler sonography and color-flow sonography. VESSELS IMAGED: External Iliac Vein (EIV) Common Femoral Vein Deep Femoral Vein Greater Saphenous Vein * Femoral Vein Popliteal Vein Small Saphenous Vein * Proximal Calf Veins (* superficial vessels) Grayscale, color doppler, spectral doppler imaging performed of the deep veins of the left lower extr emity. There is normal flow, compressibility, vascular waveforms. Left Leg: Negative for DVT IMPRESSION: No sonographic evidence of deep venous thrombosis within the left lower extremity.
[2018-01-26] MEDS: SODIUM CHLORIDE 0.9% 1,000 ML IV SCH ×2 (16:47→22:57)
[2018-01-26 16:58] LABS: Glucose,Whole Blood 156 mg/dL (75-99)
[2018-01-26 20:21] LABS: Glucose,Whole Blood 137 mg/dL (75-99)
--- NOTE | 2018-01-26 21:00 | P.CON ---
Consult Note - . Consult date: 01/26/18 Assessment/Plan:: This is a 67-year-old male patient presented to the hospital complaining of pain in his left foot with fever. Patient states that he has had a wound to his left foot for maybe 6 May be 8 or maybe 4 months. He has been on 3 courses of antibiotics and [facility] [place] He knows he has been on Keflex but otherwise does not recall the name of his antibiotics. Last tetanus status is unknown. Patient presented with fever of 101.5, leukocytosis of 15.8 and elevated heart rate with hypertension. Sodium was 1:30, creatinine 0.73, AST 69, ALT 83 and alkaline phosphatase 133. Urinalysis was clear with nitrate negative leukoesterase moderate, WBCs 10. Patient denies any urinary symptoms. He does have history apparently of diabetes but states he lost 50 pounds and was no longer diabetic was taken off his medicine. Blood sugar has been running between 145 and 156. 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 No fracture. No osteomyelitis. Chest x-ray shows no active cardiopulmonary disease. Normal heart. [facility] and started on vancomycin and Zosyn. He is status post 2500 mL IV fluid bolus. Please see the consult note is dictated by nurse practitioner Mrs. Danuta Menjivar. 67-year-old male who is status post stroke and has a very difficult affect. However he was approachable and cooperative with this observer at this time. Patient has a history of significant difficulties with medical care is developed a nonhealing ulceration to his left foot. Apparently then present for some time. Wound culture is requested blood cultures have been obtained. X -rays noted the bone scan is requested to further rule out the possibility of underlying bony infection. Pain control with Toradol was added. Antibiotic therapy was initiated with vancomycin and Zosyn given the evidence of sepsis at admission and this chronic ulceration in his overall compromised status. The patient does have leukocytosis which appears in the base of underlying infection and will be monitored. Cultures arm process which will guide antibiotic therapy as well as evaluation for offloading of the foot at this time is important I agree with evaluation, assessment and plan is dictated by nurse practitioner Mrs. Danuta Menjivar.
[2018-01-26 22:31] LABS: Hemoglobin A1C 6.2 % (4.0-6.0)
[2018-01-26] MEDS: HYDROcodone/APAP 5-325MG 1 EACH TAB PO PRN (22:57)
[2018-01-27] MEDS: HYDROcodone/APAP 5-325MG 1 EACH TAB PO PRN ×3 (05:45→21:29)
[2018-01-27] MEDS: KETOROLAC 30 MG/ML 1 ML VIAL IVP SCH ×3 (05:46→17:23)
[2018-01-27] MEDS ORDERED: VANCOMYCIN TROUGH DUE 1 EACH MISC MISCELLANE ONE (07:00)
[2018-01-27 07:08] LABS: Glucose,Whole Blood 119 mg/dL (75-99)
[2018-01-27] MEDS: INSULIN ASPART 100 UNIT/ML 1 ML 10 ML VIAL SQ SCH ×4 (07:16→21:29)
[2018-01-27 07:22] LABS: HGB 15.1 gm/dL (13.0-17.5); MCH 30.9 pg (25.0-35.0); MCHC 32.9 g/dL (31.0-37.0); Mean Platelet Volume 6.5; Platelet Count 185 k/uL (150-450); RBC 4.89 m/uL (4.30-5.90); RDW 12.6 % (11.5-15.5); WBC 18.8 k/uL (3.8-10.6)
--- NOTE | 2018-01-27 07:23 | NM ---
EXAMINATION TYPE: NM bone 3 phase DATE OF EXAM: 01/26/2018 COMPARISON: NONE HISTORY: Open sore left heel rule out osteomyelitis. Triple phase bone scintigraphy was performed following the injection of 21.8 mCi Tc 99m MDP. Immedia te images and 5 hours post injection images acquired. FINDINGS: There is no significant osseous abnormal accumulation of radiotracer to suggest osteomyelitis. Increa sed soft tissue uptake noted about the left foot suspicious for cellulitis. Degenerative uptake about the mid feet and first metatarsophalangeal joints bilaterally. Mild plantar uptake bilaterally at th e os calcis may reflect plantar fasciitis. IMPRESSION: No scintigraphic evidence of osteomyelitis at this time. If symptoms persist consider MRI. Generative uptake and probable cellulitis.
[2018-01-27] MEDS: PIPERACILLIN-TAZOBACTAM 3.375 GM in DEXTROSE/WATER 1 50ML.BAG IVPB SCH ×2 (07:27→15:34)
[2018-01-27] MEDS: PANTOPRAZOLE 40 MG/10 ML VIAL IV SCH (07:27)
[2018-01-27] MEDS: HEPARIN SODIUM,PORCINE 5,000 UNIT/ML 1 ML VIAL SQ SCH ×2 (07:27→15:34)
[2018-01-27 07:59] LABS: Anion Gap 12 mmol/L; Blood Urea Nitrogen 12 mg/dL (9-20); Calcium 8.6 mg/dL (8.4-10.2); Carbon Dioxide 22 mmol/L (22-30); Chloride 103 mmol/L (98-107); Glucose 110 mg/dL (74-99); Potassium 3.9 mmol/L (3.5-5.1); Sodium 137 mmol/L (137-145)
--- NOTE | 2018-01-27 11:13 | P.PN ---
Subjective 62-year-old admitted left foot cellulitis and osteomyelitis, patient will be continued on Zosyn and vancomycin awaiting wound cultures. Objective - Vital Signs Vital signs: Vital Signs Temp 97.5 F L 01/27/18 05:00 Pulse 92 01/27/18 07:27 Resp 16 01/27/18 07:27 BP 116/79 01/27/18 05:00 Pulse Ox 97 01/27/18 05:00 Intake & Output 01/26/18 01/27/18 01/27/18 18:59 06:59 18:59 Intake Total 650 Balance 650 Weight 86.183 kg Intake: Intake, IV Titration 650 Amount Piperacillin-Tazobactam 3 50 .375 gm In Dextrose/Water 1 50ml.bag @ 12.5 mls/hr IVPB Q8HR [facility] Rx#: [id number] Sodium Chloride 0.9% 1, 600 000 ml @ 75 mls/hr IV . [id number] [facility] Rx#:[id number] Other: Voiding Method Urinal Urinal Urinal Diaper Diaper Diaper # Voids 2 2 # Bowel Movements 1 - Exam GENERAL: The patient is alert and oriented x3, not in any acute distress. Well developed, well nourished. HEENT: Pupils are round and equally reacting to light. EOMI. No scleral icterus. No conjunctival pallor. Normocephalic, atraumatic. No pharyngeal erythema. No thyromegaly. CARDIOVASCULAR: S1 and S2 present. No murmurs, rubs, or gallops. PULMONARY: Chest is clear to auscultation, no wheezing or crackles. ABDOMEN: Soft, nontender, nondistended, normoactive bowel sounds. No palpable organomegaly. MUSCULOSKELETAL: No joint swelling or deformity. EXTREMITIES: No cyanosis, clubbing, or pedal edema. Left foot redness with an ulcer as mentioned above please refer to the photographs of ulcer NEUROLOGICAL: Gross neurological examination did not reveal any focal deficits. SKIN: No rashes. - Labs CBC & Chem 7: 01/27/18 07:13 01/27/18 07:13 Labs: Abnormal Lab Results - Last 24 Hours (Table) 01/25/18 01/26/18 01/26/18 Range/Units 18:55 11:23 16:57 WBC (3.8-10.6) k/uL POC Glucose (mg/dL) 147 H 156 H (75-99) mg/dL Glucose (74-99) mg/dL Hemoglobin A1c 6.2 H (4.0-6.0) % 01/26/18 01/27/18 01/27/18 Range/Units 20:19 07:06 07:13 WBC 18.8 H (3.8-10.6) k/uL POC Glucose (mg/dL) 137 H 119 H (75-99) mg/dL Glucose (74-99) mg/dL Hemoglobin A1c (4.0-6.0) % 01/27/18 Range/Units 07:13 WBC (3.8-10.6) k/uL POC Glucose (mg/dL) (75-99) mg/dL Glucose 110 H (74-99) mg/dL Hemoglobin A1c (4.0-6.0) % Microbiology - Last 24 Hours (Table) 01/25/18 18:55 Blood Culture - Preliminary Blood No Growth after 24 hours Assessment and Plan Plan: -Sepsis probably secondary to acute ostium myelitis or left foot infection with cellulitis patient is on vancomycin and Zosyn. Infectious disease evaluated the patient bone scan did not show any osteomyelitis -Hyponatremia hypovolemic hyponatremia improved with IV fluids -Alcohol withdrawal: Patient will be monitored for that although he denies drinking alcohol daily basis -Nicotine abuse: Counseling was provided -Type 2 diabetes mellitus metformin were discontinued patient was started on sliding scale insulin for now -
[2018-01-27 11:33] LABS: Glucose,Whole Blood 142 mg/dL (75-99)
[2018-01-27] MEDS: VANCOMYCIN 1,250 MG in SODIUM CHLORIDE 0.9% 250 ML IVPB SCH ×2 (11:38→19:22)
[2018-01-27] MEDS: THIAMINE 100 MG TAB PO SCH ×2 (11:56→17:23)
[2018-01-27] MEDS: MULTIVITAMINS, THERA 1 EACH TAB PO SCH (11:56)
[2018-01-27 16:41] LABS: Glucose,Whole Blood 200 mg/dL (75-99)
[2018-01-27] MEDS: SODIUM CHLORIDE 0.9% 1,000 ML IV SCH ×2 (17:24→19:22)
[2018-01-27] MEDS: VANCOMYCIN 1,500 MG in SODIUM CHLORIDE 0.9% 250 ML IVPB SCH (19:11)
[2018-01-27 21:16] LABS: Glucose,Whole Blood 140 mg/dL (75-99)
[2018-01-28] MEDS ORDERED: HEPARIN SODIUM,PORCINE 5,000 UNIT/ML 1 ML VIAL ONE
[2018-01-28] MEDS ORDERED: KETOROLAC 30 MG/ML 1 ML VIAL ONE
[2018-01-28] MEDS: PIPERACILLIN-TAZOBACTAM 3.375 GM in DEXTROSE/WATER 1 50ML.BAG IVPB SCH ×2 (05:25→07:36)
[2018-01-28] MEDS: KETOROLAC 30 MG/ML 1 ML VIAL IVP SCH ×2 (05:25→05:31)
[2018-01-28] MEDS: HEPARIN SODIUM,PORCINE 5,000 UNIT/ML 1 ML VIAL SQ SCH ×2 (05:25→07:32)
[2018-01-28] MEDS: VANCOMYCIN 1,250 MG in SODIUM CHLORIDE 0.9% 250 ML IVPB SCH (05:31)
[2018-01-28 05:50] VITALS: BP 139/86; PULSE 95; RESP 17; TEMP 97.9
[2018-01-28] MEDS: HYDROcodone/APAP 5-325MG 1 EACH TAB PO PRN ×2 (06:03→12:23)
[2018-01-28 07:12] LABS: Glucose,Whole Blood 103 mg/dL (75-99)
[2018-01-28] MEDS: INSULIN ASPART 100 UNIT/ML 1 ML 10 ML VIAL SQ SCH ×2 (07:21→12:26)
[2018-01-28] MEDS ORDERED: PANTOPRAZOLE 40 MG TABLET PO SCH (07:30)
[2018-01-28 07:31] LABS: HCT 44.8 % (39.0-53.0); HGB 14.8 gm/dL (13.0-17.5); MCH 31.5 pg (25.0-35.0); MCHC 33.1 g/dL (31.0-37.0); MCV 95.4 fL (80.0-100.0); Mean Platelet Volume 7.1; Platelet Count 181 k/uL (150-450); RBC 4.69 m/uL (4.30-5.90); RDW 12.8 % (11.5-15.5)
[2018-01-28 07:58] LABS: Calcium 8.2 mg/dL (8.4-10.2); Potassium 3.5 mmol/L (3.5-5.1)
[2018-01-28 10:54] LABS: Glucose,Whole Blood 117 mg/dL (75-99)
--- NOTE | 2018-01-28 12:14 | P.DS ---
Providers Date of admission: 01/25/18 21:27 Attending physician: Ben Rodriguez Consults: 01/25/18 21:31 Consult Physician Routine Consulting Provider: Cipriano Calles Reason/Comments: Infected left foot Do you want consulting provider notified?: Yes Primary care physician: Stated None Hospital Course: 8-year-old admitted with the Celexa the left foot with an ulcer in the left foot. Patient's the hemoglobin A1c is only 6.2 it's reasonable to use metformin on him. But patient doesn't check his blood sugars at home. Patient' s creatinine started worsening and has gone up from 0.8-1.2 I do not know the etiology of his worsening kidney function and I believe it will improve repeat basic metabolic profile will be ordered in about 3 days to check the kidney function again. Because of the borderline kidney function and will not start him on any metformin at this time. Patient did not require any insulin today. GENERAL: The patient is alert and oriented x3, not in any acute distress. Well developed, well nourished. HEENT: Pupils are round and equally reacting to light. EOMI. No scleral icterus. No conjunctival pallor. Normocephalic, atraumatic. No pharyngeal erythema. No thyromegaly. CARDIOVASCULAR: S1 and S2 present. No murmurs, rubs, or gallops. PULMONARY: Chest is clear to auscultation, no wheezing or crackles. ABDOMEN: Soft, nontender, nondistended, normoactive bowel sounds. No palpable organomegaly. MUSCULOSKELETAL: No joint swelling or deformity. EXTREMITIES: No cyanosis, clubbing, or pedal edema. Left foot redness improved NEUROLOGICAL: Gross neurological examination did not reveal any focal deficits. SKIN: No rashes. Assessment and Plan Plan: -Sepsis probably secondary to cellulitis of the left foot With an ulcer osteomyelitis was ruled out, infectious disease will evaluate and decide on antibiotics and if they cleared him for discharge patient will be discharged today. -Hyponatremia hypovolemic hyponatremia improved with IV fluids -Alcohol withdrawal: No withdrawals at this time -Nicotine abuse: Counseling was provided -Type 2 diabetes mellitus his present hemoglobin A1c 6.2 Patient Condition at Discharge: Stable Plan - Discharge Summary Discharge Rx Participant: Yes New Discharge Prescriptions: New Thiamine [Vitamin B-1] 100 mg PO DAILY #30 tab Discharge Medication List Thiamine [Vitamin B-1] 100 mg PO DAILY #30 tab 01/28/18 [Rx] Follow up Appointment(s)/Referral(s): None,Stated [Primary Care Provider] - 1-2 days Discharge Disposition: HOME SELF-CARE
[2018-01-28] MEDS: MULTIVITAMINS, THERA 1 EACH TAB PO SCH (12:25)
[2018-01-28] MEDS: THIAMINE 100 MG TAB PO SCH (12:25)
--- NOTE | 2018-01-28 23:43 | P.PN ---
Subjective Progress Note Date: 01/28/18 This is a 67-year-old male patient presented to the hospital complaining of pain in his left foot with fever. Patient states that he has had a wound to his left foot for maybe 6 May be 8 or maybe 4 months. He has been on 3 courses of antibiotics and [facility] [place]. He knows he has been on Keflex but otherwise does not recall the name of his antibiotics. Last tetanus status is unknown. Patient presented with fever of 101.5, leukocytosis of 15.8 and elevated heart rate with hypertension. Sodium was 1:30, creatinine 0.73, AST 69, ALT 83 and alkaline phosphatase 133. Urinalysis was clear with nitrate negative leukoesterase moderate, WBCs 10. Patient denies any urinary symptoms. He does have history apparently of diabetes but states he lost 50 pounds and was no longer diabetic was taken off his medicine. Blood sugar has been running between 145 and 156. 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 No fracture. No osteomyelitis. Chest x-ray shows no active cardiopulmonary disease. Normal heart. Patient has been admitted to the [facility] floor and started on vancomycin and Zosyn. He is status post 2500 mL IV fluid bolus. Patient has been difficult with the nurses, but respectful to me. Ready for discharge to home. Objective - Vital Signs Vital signs: Vital Signs Temp 97.9 F 01/28/18 05:49 Pulse 95 01/28/18 08:00 Resp 17 01/28/18 08:00 BP 139/86 01/28/18 05:49 Pulse Ox 95 01/28/18 05:49 Intake & Output 01/28/18 01/28/18 01/29/18 06:59 18:59 06:59 Intake Total 880 750 Output Total 700 Balance 180 750 Intake: Intake, IV Titration 400 750 Amount Piperacillin-Tazobactam 3 50 50 .375 gm In Dextrose/Water 1 50ml.bag @ 12.5 mls/hr IVPB Q8HR [facility] Rx#: [id number] Sodium Chloride 0.9% 1, 350 700 000 ml @ 100 mls/hr IV . Q10H [facility] Rx#:[id number] Oral 480 Output: Urine 700 Other: Voiding Method Urinal Urinal Diaper Diaper - Exam en: This is a 67-year-old male patient. He is sitting up in bed eating breakfast and appears to be comfortable and in no acute distress. HEENT: Head is atraumatic, normocephalic. Pupils equal, round. Sclerae is anicteric. Oral mucous membranes are moist. Dentition is in poor order. NECK: Supple. No JVD. No lymphadenopathy. No thyromegaly. LUNGS: Clear to auscultation. No wheezes or rhonchi. No intercostal retractions. HEART: Regular rate and rhythm. No murmur. ABDOMEN: Soft. Bowel sounds are present. No masses. No tenderness. EXTREMITIES: No pedal edema. No calf tenderness. Chronic dark color changes to the left foot. Dorsalis pedis is weak bilaterally. Patient has a wound to the lateral left heel with no active drainage. the dense erythema nearly resolved. NEUROLOGICAL: Patient is awake, alert and oriented x3. - Labs CBC & Chem 7: 01/28/18 06:53 01/28/18 06:53 Labs: Abnormal Lab Results - Last 24 Hours (Table) 01/28/18 01/28/18 01/28/18 Range/Units 06:53 06:53 06:53 WBC 11.0 H (3.8-10.6) k/uL Carbon Dioxide 20 L (22-30) mmol/L Creatinine 1.28 H 1.29 H (0.66-1.25) mg/dL Glucose 106 H (74-99) mg/dL POC Glucose (mg/dL) (75-99) mg/dL Calcium 8.2 L (8.4-10.2) mg/dL 01/28/18 01/28/18 Range/Units 07:11 10:52 WBC (3.8-10.6) k/uL Carbon Dioxide (22-30) mmol/L Creatinine (0.66-1.25) mg/dL Glucose (74-99) mg/dL POC Glucose (mg/dL) 103 H 117 H (75-99) mg/dL Calcium (8.4-10.2) mg/dL Microbiology - Last 24 Hours (Table) 01/25/18 18:55 Blood Culture - Preliminary Blood No Growth after 72 hours Assessment and Plan (1) Diabetic infection of left foot Narrative/Plan: 67-year-old male who is status post stroke and has a very difficult affect. However he was approachable and cooperative with this observer at this time. Patient has a history of significant difficulties with medical care is developed a nonhealing ulceration to his left foot. Apparently then present for some time. Wound culture is requested blood cultures have been obtained. X -rays noted the bone scan is requested to further rule out the possibility of underlying bony infection. Pain control with Toradol was added. Antibiotic therapy was initiated with vancomycin and Zosyn given the evidence of sepsis at admission and this chronic ulceration in his overall compromised status. The patient does have leukocytosis which appears in the base of underlying infection and will be monitored. Cultures arm process which will guide antibiotic therapy as well as evaluation for offloading of the foot at this time is important 01/28/2018 patient now improved will discharge today on keflex from [facility] where is free due to insurance issues needs to follow at OR in a week to ensure is improved. Status: Acute Code(s): E11.628 - TYPE 2 DIABETES MELLITUS WITH OTHER SKIN COMPLICATIONS; L08.9 - LOCAL INFECTION OF THE SKIN AND SUBCUTANEOUS TISSUE, UNSP SNOMED Code(s): 39381613
[2018-01-29] MEDS ORDERED: VANCOMYCIN TROUGH DUE 1 EACH MISC MISCELLANE ONE (10:00)
--- NOTE | 2018-02-03 10:04 | P.ARTDOP ---
Arterial Doppler LOWER EXTREMITY ARTERIAL DOPPLER: DATE OF SERVICE: 01/26/2018 Reason for study: Ulcer left ankle. Doppler waveforms: Normal configuration. Pulse volume recording: Normal configuration throughout. Pressure gradients: Mild gradient above the knee on the left. Ankle-brachial indices: Greater than 1 on the right and 0.79 on the left. Toe pressures: [] on the right, [] on the left Impression: Normal on the right and mild left SFA disease..
== END 2018-01-28 15:30 | disposition home or self-care (01) | DRG 872 ==
LOC: EC 18:33 → 5MS5E 21:27
PROVIDERS: ADMIT Hospitalist; ATTEND Hospitalist
DX: A41.9 Sepsis, unspecified organism (principal); L03.116 Cellulitis of left lower limb; E87.1 Hypo-osmolality and hyponatremia; F17.210 Nicotine dependence, cigarettes, uncomplicated; M19.072 Primary osteoarthritis, left ankle and foot; F12.90 Cannabis use, unspecified, uncomplicated; I10 Essential (primary) hypertension; L97.529 Non-pressure chronic ulcer of other part of left foot with unspecified severity; E11.621 Type 2 diabetes mellitus with foot ulcer; E11.628 Type 2 diabetes mellitus with other skin complications; Z71.6 Tobacco abuse counseling; Z88.6 Allergy status to analgesic agent; Z88.1 Allergy status to other antibiotic agents; Z88.5 Allergy status to narcotic agent; Z86.73 Personal history of transient ischemic attack (TIA), and cerebral infarction without residual deficits
CPT/HCPCS: 36415; 71046; 78315; 80048; 80053; 80202; 81001; 82550; 82553; 82565; 83036; 83605; 83735; 85025; 85027; 86140; 87040; 90715; 93005; 93923; 96365; 96366; 96375; 99285